=== PATIENT | male | born 1965 | race American Indian/Alaskan Native ===

== ENCOUNTER 2016-10-25 00:27 | Inpatient (IN) | payer OTHER ==
[2016-10-25] MEDS ORDERED: PROVENTIL IH ONE ×2 (00:30→00:39)
[2016-10-25] MEDS ORDERED: ATROVENT IH ONE ×2 (00:30→00:39)
[2016-10-25] MEDS ORDERED: ADRENALIN ONE (00:31)
[2016-10-25] MEDS ORDERED: ADRENALINE P/F IM ONE ×2 (00:45→01:00)
--- NOTE | 2016-10-25 00:45 | Emergency Department Report ---
ED Asthma HPI - General Chief Complaint: Dyspnea/Respdistress Stated Complaint: ASTHMA Time Seen by Provider: 10/25/16 00:33 - History of Present Illness Initial Comments: She is a 51-year-old male with history of severe asthma with multiple prior intubations brought in by EMS due to respiratory distress. Patient was found to be wheezing and hypoxic to the low 80s and received multiple rounds of albuterol, Solu-Medrol, magnesium with significant improvement. Patient upon arrival is still struggling to breathe but is moving good air. History is limited as the patient is not able to speak due to his respiratory distress. - Related Data Previous Rx's Medication Instructions Recorded Last Taken Type ALBUTEROL Inhaler [ProAir HFA 2 puff IH QID PRN #1 inhalation 10/04/16 Unknown Rx Inhaler] Fluticasone/Salmeterol [Advair 1 puff IH BID #1 disk.w.dev 10/04/16 Unknown Rx Diskus 250-50 mcg] Allergies Allergy/AdvReac Type Severity Reaction Status Date / Time No Known Allergies Allergy Verified 09/10/16 20:04 ED Review of Systems ROS: Stated complaint: ASTHMA Other details as noted in HPI Comment: Unobtainable due to pts medical conditions ED Past Medical Hx - Past Medical History Hx Congestive Heart Failure: No Hx Asthma: Yes - Surgical History Additional Surgical History: RIGHT ankle - Social History Smoking Status: Never Smoker Substance Use Type: None - Medications Home Medications: Home Medications Medication Instructions Recorded Confirmed Last Taken Type ALBUTEROL Inhaler [ProAir HFA 2 puff IH QID PRN #1 inhalation 10/04/16 Unknown Rx Inhaler] Fluticasone/Salmeterol [Advair 1 puff IH BID #1 disk.w.dev 10/04/16 Unknown Rx Diskus 250-50 mcg] ED Physical Exam - General Limitations: Other (respiratory distress) General appearance: alert (diaphoretic, severe respiratory distress) - Eye Eye exam: Present: normal appearance - ENT ENT exam: Present: normal exam - Neck Neck exam: Present: normal inspection - Respiratory Respiratory exam: Present: other (wheezing in bilateral lung randall, severe respiratory distress, using all accessory muscles) - Cardiovascular Cardiovascular Exam: Present: normal rhythm, tachycardia - GI/Abdominal GI/Abdominal exam: Present: soft. Absent: distended, tenderness - Extremities Exam Extremities exam: Present: normal inspection - Neurological Exam Neurological exam: Present: alert - Psychiatric Psychiatric exam: Present: agitated - Skin Skin exam: Present: diaphoretic ED Course Vital Signs 10/25/16 10/25/16 10/25/16 00:44 00:45 00:51 Pulse Rate 100 H 110 H Pulse Rate [ 102 H Bilateral] Respiratory 22 16 Rate Respiratory 21 Rate [Bilateral ] Blood Pressure 170/108 Blood Pressure 170/108 [Left] O2 Sat by Pulse 100 100 Oximetry 10/25/16 10/25/16 01:36 02:02 Pulse Rate 100 H 89 Pulse Rate [ Bilateral] Respiratory 26 H 16 Rate Respiratory Rate [Bilateral ] Blood Pressure 161/102 Blood Pressure 152/99 [Left] O2 Sat by Pulse 100 97 Oximetry - Reevaluation(s) Reevaluation #1: 10/25/16 01:01 Patient reassessed at bedside. Still in moderate respiratory distress however appears to be improving, is able to speak a few words sentence through the BiPAP. Is no longer diaphoretic. Saturating 100% on the monitor. Reevaluation #2: 10/25/16 01:34 Patient reassessed. Both speak in full sentences through BiPAP mask. ABG reviewed at this time and shows hypercapnia with a CO2 of 60. Will increase the inspiratory pressure on the BiPAP. ED Medical Decision Making - Lab Data Result diagrams: 10/25/16 01:16 10/25/16 01:16 - Medical Decision Making Patient seen immediately upon arrival. Moved over to room and placed on a monitor. Patient placed on BiPAP and .3 mg of 1 1000 epinephrine IM given. Monitor closely to see if the patient turns around or will require intubation. IV, labs, monitor, cxr Chest x-ray shows no signs of pneumothorax, infiltrate or any clear acute abnormalities. Critical Care Time: Yes Critical care time in (mins) excluding proc time.: 30 Critical care attestation.: If time is entered above; I have spent that time in minutes in the direct care of this critically ill patient, excluding procedure time. ED Disposition Clinical Impression: Acute hypercapnic respiratory failure, Respiratory distress, Asthma with severe exacerbation Disposition: OP ADMITTED IP TO THIS HOSP Is pt being admited?: Yes Does the pt Need Aspirin: No Condition: Serious Referrals: PRIMARY CARE,MD [Primary Care Provider] - 3-5 Days Time of Disposition: 02:07 (Spoke to Dr. Grande, will admit)
[2016-10-25 01:25] LABS: Basophils % (Auto) 0.3 % (0.0-1.8); Eosinophils % (Auto) 6.7 % (0.0-4.3); Hematocrit 43.4 % (35.5-45.6); Hemoglobin 14.3 gm/dl (11.8-15.2); Mean Corpuscular HGB Conc 33 % (32-34); Mean Corpuscular Hemoglobin 30 pg (28-32); Mean Corpuscular Volume 92 fl (84-94); Platelet Count 206 K/mm3 (140-440); Red Blood Count 4.72 M/mm3 (3.65-5.03); Red Cell Distribution Width 13.2 % (13.2-15.2); White Blood Count 11.8 K/mm3 (4.5-11.0)
[2016-10-25] MEDS ORDERED: ZOFRAN IV ONE (01:30)
[2016-10-25] MEDS ORDERED: ZOFRAN ONE (01:38)
[2016-10-25 01:44] LABS: ISTAT Base Excess 1; ISTAT HCO3 27.8; ISTAT PCO2 60.8 (35-45); ISTAT PH 7.269 (7.35-7.45); ISTAT PO2 322 (80-105); ISTAT SO2 100; ISTAT TCO2 30
[2016-10-25 01:49] LABS: BUN/Creatinine Ratio 13.33; Blood Urea Nitrogen 12 mg/dL (9-20); Carbon Dioxide 28 mmol/L (22-30); Chloride 104.1 mmol/L (98-107); Glucose 134 mg/dL (75-100); Potassium 4.4 mmol/L (3.6-5.0); Sodium 144 mmol/L (137-145)
[2016-10-25 02:08] LABS: Anion Gap 16 mmol/L
--- NOTE | 2016-10-25 02:33 | Admit Criteria Form ---
Admission Criteria Documentation: ASTHMA Clinical Indications for Admission to Inpatient Care (Place 'X' for any and all applicable criteria): Admission is indicated for ANY ONE of the following (1)(2)(3)(4)(5): [ ]I. Absent or markedly diminished breath sounds (silent chest) [ ]II. Oxygen saturation < 92% [ ]III. PaCO2 = / > 42 mm Hg (5.6 kPa) [ ]IV. Peak expiratory flow rate < 40% of predicted or personal best after treatment. [ ]V. Peak expiratory flow rate < 33% of predicted or personal before after treatment [ ]. Change in mental status [ ]VII. Ventilatory support required [ ]VIII. PaO2 < 60 mm Hg (8.0 kPa) [ ]IX. Cyanosis [ ]X. Cardiac dysrhythmia (e.g., bradycardia) [ ]XI. Hemodynamic instability [ ]XII. Radiographic evidence of complication requiring inpatient treatment (e.g., pneumonia, pneumothorax) [X ]XIII. Inpatient admission required rather than observation care (also use Asthma: Observation Care guideline as appropriate) because of ANY ONE of the following: [X ]a) Respiratory finding that is severe or persistent (eg, dyspnea, tachypnea, accessory muscle use) [ ]b) Airflow measurements less than 60% of predicted or personal best that persist (e.g., over 24 hours) or worsen despite treatments [ ]c) Supplemental oxygen or respiratory treatments for over 24 hours that are performable only in acute inpatient setting [ ]d) Other condition, treatment or monitoring requiring inpatient admission. Extended stay beyond goal length of stay may be needed for (26)(27)(28): [ ]a) Severe respiratory failure (23) (29) (30) [ ]b) Secondary causes and complications (25) [ ]c) Status asthmaticus [ ]d) Chronic obstructive asthma [ ]e) Older patients (29) [ ]f) Slow resolution [ ]g) Clinically significant exacerbation of comorbidities (eg, elliot. heart failure, atrial fibrillation) The original [employer] content created by [email or web address] has been revised. The portions of the content which have been revised are identified through the use of italic text or in bold, and [employer] has neither reviewed nor approved the modified material. All other unmodified content is copyright [employer] Please see references footnoted in the original [facility] edition 2016 Admission Criteria Met: Yes
[2016-10-25 03:09] LABS: ISTAT Base Excess -1; ISTAT HCO3 25.8; ISTAT PCO2 52.4 (35-45); ISTAT PO2 111 (80-105); ISTAT SO2 98; ISTAT TCO2 27
[2016-10-25] MEDS ORDERED: ZITHROMAX 500 MG in NACL 0.9% 250ML 250 ML IV SCH (07:00)
[2016-10-25] MEDS ORDERED: PROAIR IH PRN (09:06)
[2016-10-25] MEDS ORDERED: PROVENTIL IH PRN (09:13)
--- NOTE | 2016-10-25 09:16 | Event Note ---
Date: 10/25/16 See H/p in reports Acute respiratory failure with Hypercapnia Asthma exacerbation
[2016-10-25] MEDS ORDERED: PERCOCET 5/325 PO PRN (09:17)
[2016-10-25] MEDS ORDERED: DULCOLAX PR PRN (09:17)
[2016-10-25] MEDS ORDERED: TYLENOL PO PRN (09:17)
[2016-10-25] MEDS ORDERED: DUONEB 0.5 MG-3 MG/3 ML SOLN IH PRN (09:23)
--- NOTE | 2016-10-25 09:44 | XRay Report ---
AP CHEST :10/25/16 01:07 CLINICAL: Respiratory distress. COMPARISON:None. FINDINGS: Normal heart and pulmonary vasculature. The lungs are normally expanded and clear. The bones and soft tissues are normal.No tubes or lines. IMPRESSION: Normal chest.
[2016-10-25] MEDS ORDERED: MILK OF MAGNESIA PO PRN (10:00)
[2016-10-25] MEDS ORDERED: LEVAQUIN 750MG/150ML 150 ML IV SCH (10:00)
[2016-10-25] MEDS ORDERED: NON-FORMULARY (Fluticasone/Salmeterol [Advair Diskus 250-50 Mcg] 1 PUFF) IH SCH (10:00)
[2016-10-25] MEDS ORDERED: ZOFRAN IV PRN (10:00)
[2016-10-25] MEDS: DUONEB 0.5 MG-3 MG/3 ML SOLN IH SCH ×3 (10:00→20:00)
[2016-10-25] MEDS ORDERED: LEVAQUIN 750MG/150ML 150 ML IV ONE (12:11)
[2016-10-25] MEDS: COZAAR PO SCH (12:35)
[2016-10-25] MEDS: LOVENOX SUB-Q SCH (12:36)
[2016-10-25] MEDS: BROVANA NEBU IH SCH ×2 (13:51→20:01)
[2016-10-25] MEDS: PULMICORT IH SCH ×2 (13:51→20:00)
[2016-10-25] MEDS ORDERED: DUONEB 0.5 MG-3 MG/3 ML SOLN IH ONE (14:39)
--- NOTE | 2016-10-25 18:17 | History and Physical Report ---
CHIEF COMPLAINT: Increasing shortness of breath. HISTORY OF PRESENT ILLNESS: A 51-year-old -[place] male with history of asthma and multiple prior intubations brought in by EMS for severe respiratory distress. The patient was found to be wheezing and hypoxic in the low 80s. The patient was given Solu-Medrol, magnesium with significant improvement in the ER. The patient was put on BiPAP. The patient was struggling to breathe at the time of arrival. No fever, no chills. Cough productive of mucoid sputum. PAST MEDICAL HISTORY: Significant for asthma with multiple intubations. No hypertension, no congestive heart failure. PAST SURGICAL HISTORY: Right ankle surgery. SOCIAL HISTORY: Does not smoke. No alcohol, no recreational drugs. CURRENT MEDICATIONS: ProAir 2 puffs q.i.d. and Advair 250/50 one puff b.i.d. FAMILY HISTORY: Significant for hypertension. REVIEW OF SYSTEMS: CONSTITUTIONAL: No weight loss, no weight gain, no fever, no chills. HEENT: No sore throat. CARDIOVASCULAR AND RESPIRATORY SYSTEM: As mentioned in history of present illness, increased shortness of breath and low oxygen saturations and respiratory distress for 1 day. No chest pain. No palpitations. GASTROINTESTINAL: No nausea, no vomiting, no diarrhea. GENITOURINARY SYSTEM: No dysuria, no flank pain. MUSCULOSKELETAL: No joint pains, no muscle pains. CENTRAL NERVOUS SYSTEM: No syncope, no seizures. PSYCHIATRIC: No depression. SKIN: No rashes. ENDOCRINE: No heat intolerance or cold intolerance. No other endocrine symptoms like polyphagia, polydipsia. INTEGUMENTARY SYSTEM: No rash. No ulcers. No redness. ALLERGIES AND IMMUNOLOGY: No allergic rhinitis. Has severe wheezing. PHYSICAL EXAMINATION: GENERAL: Young middle-aged male, cooperative during examination. VITAL SIGNS: Blood pressure is 170/108, temperature is 98, pulse is 100, respiratory rate is 21 to 22. HEENT: Unremarkable. Pupils equal and reactive. NECK: Supple. No lymphadenopathy, no thyromegaly. Accessory muscles of respiration are prominent. LUNGS: Inspiratory and expiratory rhonchi present. CARDIOVASCULAR: S1, S2 heard. No gallop, no murmur, no rub. Apical impulse in left fifth intercostal space and midclavicular line. ABDOMEN: Soft and benign. No hepatosplenomegaly, no guarding, no rigidity. Hernial orifices are normal. EXTREMITIES: Good pedal pulses. No pedal edema. CENTRAL NERVOUS SYSTEM: Alert and oriented x 4. Nonfocal exam. SKIN: Normal. LABORATORY DATA: White count is 11,800;, hemoglobin is 14.3; hematocrit is 43.4; platelet count is 206,000. ABG is significant for pH of 7.3, pCO2 of 52.4, pO2 of 111, total CO2 of 27, O2 sats of 98%. FiO2 was 25%. Sodium was 144, potassium 4.4, chloride 104, bicarb 28, BUN and creatinine are 12 and 0.9, glucose is 134, calcium is 9.0. Troponin T is less than 0.010. BNP is 12.08. Chest x-ray, no infiltrate. ASSESSMENT AND PLAN: 1. Acute respiratory failure with hypercapnia, aggressive bronchodilator treatments with IV steroids, Solu-Medrol 80 mg q.8 and IV Levaquin 750 q.24. The patient has improved significantly, so can be admitted to Telemetry. Downgraded from critical care unit to Telemetry. 2. Asthma exacerbation. Same treatment, DuoNeb q.6 round the clock and q.3 p.r.n. and IV Solu-Medrol and IV Levaquin. 3. Hypertension. The patient's blood pressures have been consistently high, but the patient does not have a history of hypertension. The last blood pressure was 133/103. We will add losartan 100 mg daily for the time being and discharged on losartan 100 daily. 4. Deep venous thrombosis prophylaxis, Lovenox 40 mg subcutaneous daily. JOB# [id number] VSM/NTS
[2016-10-26] MEDS: DUONEB 0.5 MG-3 MG/3 ML SOLN IH SCH ×4 (01:39→21:01)
[2016-10-26] MEDS: BROVANA NEBU IH SCH ×2 (07:50→21:01)
[2016-10-26] MEDS: PULMICORT IH SCH ×2 (07:50→21:00)
[2016-10-26 08:24] LABS: Basophils % (Auto) 0.4 % (0.0-1.8); Hematocrit 46.8 % (35.5-45.6); Mean Corpuscular HGB Conc 32 % (32-34); Mean Corpuscular Hemoglobin 30 pg (28-32); Mean Corpuscular Volume 93 fl (84-94); Platelet Count 241 K/mm3 (140-440); Red Blood Count 5.06 M/mm3 (3.65-5.03); Red Cell Distribution Width 13.4 % (13.2-15.2)
[2016-10-26 08:42] LABS: Alanine Aminotransferase 17 units/L (7-56); Albumin 4.1 g/dL (3.9-5); Albumin/Globulin Ratio 1.2 %; Alkaline Phosphatase 47 units/L (35-129); Anion Gap 20 mmol/L; Bilirubin,Total 0.3 mg/dL (0.1-1.2); Blood Urea Nitrogen 17 mg/dL (9-20); Calcium 9.5 mg/dL (8.4-10.2); Carbon Dioxide 24 mmol/L (22-30); Chloride 102.7 mmol/L (98-107); Glucose 133 mg/dL (75-100); Potassium 4.6 mmol/L (3.6-5.0); Sodium 142 mmol/L (137-145); Total Protein 7.5 g/dL (6.3-8.2)
--- NOTE | 2016-10-26 09:58 | Progress Note ---
Assessment and Plan Assessment and plan: Acute respiratory failure with hypoxemia and hypercapnia Acute asthma exacerbation Hypertension, uncontrolled Leukocytosis, likely due to acute bronchitis Plan: Continue scheduled breathing treatment, IV Solu-Medrol and antibiotics Monitor BP and adjust medications to control blood pressure as needed Continue GI and DVT prophylaxis DC home when clinically stable History Interval history: Patient seen and examined. Medical records and medication list reviewed. No acute event overnight noted by the RN. Patient continued to complain of difficulty breathing on minimal exertion. Patient is tolerating diet. Discussed plan of care at bedside with patient. Hospitalist Physical - Physical exam Narrative exam: GENERAL: well-developed and well-nourished lying on bed appeared to be in no discomfort. HEENT: Normocephalic. Atraumatic. No conjunctival congestion or icterus. Patient has moist mucous membranes. NECK: Supple. Trachea midline. CHEST/LUNGS: Diffuse wheezes auscultated bilaterally, breathing nonlabored. No crackles or rhonchi. HEART/CARDIOVASCULAR: Regular in rate and rhythm. S1 and S2 positive. ABDOMEN: Abdomen is soft, nontender. Patient has normal bowel sounds. SKIN: There is no rash. Warm and dry. NEURO: No focal motor deficit. Follows command. MUSCULOSKELETAL: No joint effusion or tenderness. EXTRIMITY: No edema, no cyanosis or clubbing. PSYCH: Cooperative. - Constitutional Vitals: Temp Pulse Resp BP Pulse Ox 98.9 F 85 15 146/84 99 10/26/16 07:40 10/26/16 07:40 10/26/16 07:40 10/26/16 07:40 10/26/16 07:40 Results - Labs CBC & Chem 7: 10/26/16 07:55 10/26/16 07:55 Labs: Laboratory Last Values WBC 11.0 K/mm3 (4.5-11.0) 10/26/16 07:55 RBC 5.06 M/mm3 (3.65-5.03) H 10/26/16 07:55 Hgb 15.0 gm/dl (11.8-15.2) 10/26/16 07:55 Hct 46.8 % (35.5-45.6) H 10/26/16 07:55 MCV 93 fl (84-94) 10/26/16 07:55 MCH 30 pg (28-32) 10/26/16 07:55 MCHC 32 % (32-34) 10/26/16 07:55 RDW 13.4 % (13.2-15.2) 10/26/16 07:55 Plt Count 241 K/mm3 (140-440) 10/26/16 07:55 Lymph % (Auto) 10.2 % (13.4-35.0) L 10/26/16 07:55 Ferry % (Auto) 3.3 % (0.0-7.3) 10/26/16 07:55 Eos % (Auto) 0.0 % (0.0-4.3) 10/26/16 07:55 Baso % (Auto) 0.4 % (0.0-1.8) 10/26/16 07:55 Lymph # 1.1 K/mm3 (1.2-5.4) L 10/26/16 07:55 Ferry # 0.4 K/mm3 (0.0-0.8) 10/26/16 07:55 Eos # 0.0 K/mm3 (0.0-0.4) 10/26/16 07:55 Baso # 0.0 K/mm3 (0.0-0.1) 10/26/16 07:55 Seg Neutrophils % 86.1 % (40.0-70.0) H 10/26/16 07:55 Seg Neutrophils # 9.5 K/mm3 (1.8-7.7) H 10/26/16 07:55 POC ABG pH 7.300 (7.35-7.45) L 10/25/16 03:00 POC ABG pCO2 52.4 (35-45) H 10/25/16 03:00 POC ABG pO2 111 (80-105) H 10/25/16 03:00 POC ABG HCO3 25.8 10/25/16 03:00 POC ABG Total CO2 27 10/25/16 03:00 POC ABG O2 Sat 98 10/25/16 03:00 POC ABG Base Excess -1 10/25/16 03:00 FiO2 25 % 10/25/16 03:00 Sodium 142 mmol/L (137-145) 10/26/16 07:55 Potassium 4.6 mmol/L (3.6-5.0) 10/26/16 07:55 Chloride 102.7 mmol/L (98-107) 10/26/16 07:55 Carbon Dioxide 24 mmol/L (22-30) 10/26/16 07:55 Anion Gap 20 mmol/L 10/26/16 07:55 BUN 17 mg/dL (9-20) 10/26/16 07:55 Creatinine 1.0 mg/dL (0.8-1.5) 10/26/16 07:55 Estimated GFR > 60 ml/min 10/26/16 07:55 BUN/Creatinine Ratio 17.00 % 10/26/16 07:55 Glucose 133 mg/dL (75-100) H 10/26/16 07:55 Hemoglobin A1c 5.9 % (4-6) 10/25/16 09:58 Calcium 9.5 mg/dL (8.4-10.2) 10/26/16 07:55 Total Bilirubin 0.3 mg/dL (0.1-1.2) 10/26/16 07:55 AST 19 units/L (5-40) 10/26/16 07:55 ALT 17 units/L (7-56) 10/26/16 07:55 Alkaline Phosphatase 47 units/L (35-129) 10/26/16 07:55 Troponin T < 0.010 ng/mL (0.00-0.029) 10/25/16 01:16 NT-Pro-B Natriuret Pep 12.08 pg/mL (0-900) 10/25/16 01:16 Total Protein 7.5 g/dL (6.3-8.2) 10/26/16 07:55 Albumin 4.1 g/dL (3.9-5) 10/26/16 07:55 Albumin/Globulin Ratio 1.2 % 10/26/16 07:55 - Imaging and Cardiology Chest x-ray: report reviewed (no infiltrates)
[2016-10-26] MEDS: COZAAR PO SCH (10:47)
[2016-10-26] MEDS: LOVENOX SUB-Q SCH (10:48)
[2016-10-26] MEDS ORDERED: FLUARIX QUAD 2016-2017(36 MOS+) IM ONE (12:00)
[2016-10-26] MEDS: LEVAQUIN 750MG/150ML 150 ML IV SCH (13:57)
[2016-10-27] MEDS: DUONEB 0.5 MG-3 MG/3 ML SOLN IH SCH ×3 (01:39→13:33)
[2016-10-27] MEDS: BROVANA NEBU IH SCH (09:20)
[2016-10-27] MEDS: PULMICORT IH SCH (09:20)
[2016-10-27] MEDS: COZAAR PO SCH (10:00)
[2016-10-27] MEDS: LEVAQUIN 750MG/150ML 150 ML IV SCH (10:00)
[2016-10-27] MEDS: LOVENOX SUB-Q SCH (10:00)
--- NOTE | 2016-10-27 12:51 | Discharge Summary ---
Providers - Providers Date of Admission: 10/25/16 12:12 Date of discharge: 10/27/16 Attending physician: ROSIBEL KEITA Primary care physician: SOFY ARRIAGA MD Hospitalization Condition: Serious Hospital course: Discharge Diagnosis: Acute respiratory failure with hypoxemia and hypercapnia Acute asthma exacerbation Hypertension, uncontrolled Leukocytosis, likely due to acute bronchitis Disposition: DISCHARGED TO HOME OR SELFCARE Time spent for discharge: 32 minutes Core Measure Documentation - Palliative Care Palliative Care/ Comfort Measures: Not Applicable - Core Measures Any of the following diagnoses?: none Exam - Physical Exam Narrative exam: GENERAL: well-developed and well-nourished AAM lying on bed appeared to be in no discomfort. HEENT: Normocephalic. Atraumatic. No conjunctival congestion or icterus. Patient has moist mucous membranes. NECK: Supple. Trachea midline. CHEST/LUNGS: no wheezes auscultated bilaterally, breathing nonlabored. No crackles or rhonchi. HEART/CARDIOVASCULAR: Regular in rate and rhythm. S1 and S2 positive. ABDOMEN: Abdomen is soft, nontender. Patient has normal bowel sounds. SKIN: There is no rash. Warm and dry. NEURO: No focal motor deficit. Follows command. MUSCULOSKELETAL: No joint effusion or tenderness. EXTRIMITY: No edema, no cyanosis or clubbing. PSYCH: Cooperative. - Constitutional Vitals: Temp Pulse Resp BP Pulse Ox 98.5 F 86 20 150/86 98 10/27/16 08:00 10/27/16 09:45 10/27/16 09:45 10/27/16 08:00 10/27/16 08:00 Plan Activity: advance as tolerated Weight Bearing Status: Weight Bear as Tolerated Diet: low cholesterol, low salt Follow up with: PRIMARY CAREMD [Primary Care Provider] - 3-5 Days Prescriptions: Losartan [Cozaar] 100 mg PO QDAY #30 tablet Levofloxacin [Levaquin] 750 mg PO QDAY #5 tablet
[2016-10-27 14:50] VITALS: BP 136/82
== END 2016-10-27 17:59 | disposition home or self-care (01) | DRG 189 ==
LOC: ED 00:27 → 4A 12:12 → 3A 14:12
PROVIDERS: ADMIT Internal Medicine; ATTEND Internal Medicine
PROC: 5A09357 Assistance with Respiratory Ventilation, Less than 24 Consecutive Hours, Continuous Positive Airway Pressure (ICD-10-PCS; principal; 2016-10-25)
DX: J96.01 Acute respiratory failure with hypoxia (principal); J45.901 Unspecified asthma with (acute) exacerbation; J96.02 Acute respiratory failure with hypercapnia; I10 Essential (primary) hypertension; D72.829 Elevated white blood cell count, unspecified; J20.9 Acute bronchitis, unspecified; Z82.49 Family history of ischemic heart disease and other diseases of the circulatory system
CPT/HCPCS: 36415; 71010; 80048; 80053; 82803; 83036; 83880; 84484; 85025; 90686; 94640; J0171; J0456; J1650; J1956; J2405; J2920; J7050

== ENCOUNTER 2016-11-14 20:47 | Inpatient (IN) | payer OTHER ==
[2016-11-14] MEDS ORDERED: PROVENTIL IH ONE (21:05)
[2016-11-14] MEDS ORDERED: DUONEB 0.5 MG-3 MG/3 ML SOLN IH ONE (21:05)
[2016-11-14 21:35] LABS: Basophils % (Auto) 0.4 % (0.0-1.8); Hematocrit 44.8 % (35.5-45.6); Hemoglobin 14.6 gm/dl (11.8-15.2); Mean Corpuscular HGB Conc 33 % (32-34); Mean Corpuscular Hemoglobin 29 pg (28-32); Mean Corpuscular Volume 90 fl (84-94); Platelet Count 219 K/mm3 (140-440); Red Blood Count 4.98 M/mm3 (3.65-5.03); Red Cell Distribution Width 12.9 % (13.2-15.2); White Blood Count 6.8 K/mm3 (4.5-11.0)
[2016-11-14 21:56] LABS: Anion Gap 19 mmol/L; BUN/Creatinine Ratio 12.85; Blood Urea Nitrogen 9 mg/dL (9-20); Calcium 9.1 mg/dL (8.4-10.2); Carbon Dioxide 24 mmol/L (22-30); Chloride 102.1 mmol/L (98-107); Glucose 149 mg/dL (75-100); Sodium 141 mmol/L (137-145)
--- NOTE | 2016-11-14 22:24 | Emergency Department Report ---
ED Shortness of Breath HPI - General Chief Complaint: Dyspnea/Respdistress Stated Complaint: FITO Time Seen by Provider: 11/14/16 21:01 Source: patient, EMS Mode of arrival: Stretcher Limitations: No Limitations - History of Present Illness Initial Comments: This is a pleasant 51-year-old male who reports difficulty in breathing that has been worsening throughout the day. She does have a long-standing history of COPD. He does use nebulized treatments regularly. He reports using frequent treatment since this afternoon. He states he continues to become more dyspneic. EMS was called to the house. Patient was found to have O2 saturation of 90% on room air. Patient was given magnesium 2 g as well as DuoNeb treatment as well Solu-Medrol 125 mg IV. Patient describes tightness in the chest. Denies any pain denies any cardiac history. Onset/Timin -: Gradual, hour(s) Severity: moderate Quality: dull Consistency: constant Improves With: oxygen, rest Worsens With: exertion Known History Of: COPD Associated Symptoms: denies other symptoms Treatments Prior to Arrival: oxygen, bronchodilator - Related Data Previous Rx's Medication Instructions Recorded Last Taken Type ALBUTEROL Inhaler [ProAir HFA 2 puff IH QID PRN #1 inhalation 10/04/16 Unknown Rx Inhaler] Fluticasone/Salmeterol [Advair 1 puff IH BID #1 disk.w.dev 10/04/16 Unknown Rx Diskus 250-50 mcg] Losartan [Cozaar] 100 mg PO QDAY #30 tablet 10/27/16 Unknown Rx Allergies Allergy/AdvReac Type Severity Reaction Status Date / Time No Known Allergies Allergy Verified 09/10/16 20:04 ED Review of Systems ROS: Stated complaint: FITO Other details as noted in HPI Constitutional: denies: chills, fever Eyes: denies: eye pain, eye discharge, vision change ENT: denies: ear pain, throat pain Respiratory: cough, shortness of breath, SOB with exertion, SOB at rest. denies : wheezing Cardiovascular: denies: chest pain, palpitations Endocrine: no symptoms reported Gastrointestinal: denies: abdominal pain, nausea, diarrhea Genitourinary: denies: urgency, dysuria Musculoskeletal: denies: back pain, joint swelling, arthralgia Skin: denies: rash, lesions Neurological: denies: headache, weakness, paresthesias Psychiatric: denies: anxiety, depression Hematological/Lymphatic: denies: easy bleeding, easy bruising ED Past Medical Hx - Past Medical History Previous Medical History?: Yes Hx Congestive Heart Failure: No Hx Diabetes: No Hx Asthma: Yes Hx COPD: No - Surgical History Past Surgical History?: Yes Additional Surgical History: RIGHT ankle - Social History Smoking Status: Never Smoker Substance Use Type: None - Medications Home Medications: Home Medications Medication Instructions Recorded Confirmed Last Taken Type ALBUTEROL Inhaler [ProAir HFA 2 puff IH QID PRN #1 inhalation 10/04/16 11/14/16 Unknown Rx Inhaler] Fluticasone/Salmeterol [Advair 1 puff IH BID #1 disk.w.dev 10/04/16 11/14/16 Unknown Rx Diskus 250-50 mcg] Losartan [Cozaar] 100 mg PO QDAY #30 tablet 10/27/16 11/14/16 Unknown Rx ED Physical Exam - General Limitations: No Limitations General appearance: alert, anxious, in distress - Head Head exam: Present: atraumatic, normocephalic - Eye Eye exam: Present: normal appearance, PERRL, EOMI - ENT ENT exam: Present: normal exam, normal orophraynx, mucous membranes moist - Neck Neck exam: Present: normal inspection - Respiratory Respiratory exam: Present: respiratory distress (moderate), wheezes, decreased breath sounds - Cardiovascular Cardiovascular Exam: Present: tachycardia. Absent: systolic murmur, diastolic murmur, rubs, gallop - GI/Abdominal GI/Abdominal exam: Present: soft, tenderness (mild epigastric tenderness from coughing), normal bowel sounds - Rectal Rectal exam: Present: deferred - Extremities Exam Extremities exam: Present: normal inspection - Back Exam Back exam: Present: normal inspection - Neurological Exam Neurological exam: Present: alert, oriented X3 - Psychiatric Psychiatric exam: Present: normal affect, normal mood - Skin Skin exam: Present: warm, dry, intact, normal color. Absent: rash ED Course Vital Signs 11/14/16 11/14/16 11/14/16 21:16 21:18 21:22 Pulse Rate 117 H 117 H Pulse Rate [ 118 H Bilateral] Respiratory 20 16 Rate Respiratory 21 Rate [Bilateral ] Blood Pressure 165/114 Blood Pressure 165/114 [Left] O2 Sat by Pulse 100 100 Oximetry 11/14/16 11/15/16 22:35 00:00 Pulse Rate 74 Pulse Rate [ Bilateral] Respiratory 16 Rate Respiratory Rate [Bilateral ] Blood Pressure Blood Pressure 126/97 [Left] O2 Sat by Pulse 95 99 Oximetry - Reevaluation(s) Reevaluation #1: 11/14/16 22:50 Patient placed on BiPAP here. He was given another DuoNeb as well as 5 mg of albuterol. Asthma and after 1 hour demonstrate still working fairly hard. O2 saturation with BiPAP 100% on 60% BiPAP I believe over the next hour though will building him down to nasal cannula. I feel that he is appropriate for the floor with telemetry. My hope was that he would have a more quick recovery but he is demonstrating some improvement. I did consider cardiac primary issues as well as possibility of PE. I have a low suspicion of both. COPD is a common ailment for him. This seems to be an exacerbation. Here is unremarkable. As is troponin. Reevaluation #2: 11/15/16 02:30 We were unsuccessful in getting the patient off BiPAP. We will still admit to telemetry stable at this time. With FiO2 of 40% ED Medical Decision Making - Lab Data Result diagrams: 11/14/16 21:20 11/14/16 21:20 - EKG Data EKG shows normal: sinus rhythm, axis (nml), QRS complexes (nml), ST-T waves ( nmllvh) Rate: tachycardia (120) - EKG Data When compared to previous EKG there are: previous EKG unavailable - Radiology Data interpreted by me: Slight hyperexpansion. No infiltrate. Normal cardiac silhouette. Critical care attestation.: If time is entered above; I have spent that time in minutes in the direct care of this critically ill patient, excluding procedure time. ED Disposition Clinical Impression: COPD with exacerbation Disposition: OP ADMITTED IP TO THIS HOSP Is pt being admited?: Yes Does the pt Need Aspirin: No Condition: Stable Time of Disposition: 22:24
[2016-11-14] MEDS ORDERED: NON-FORMULARY (Fluticasone/Salmeterol [Advair Diskus 250-50 Mcg] 1 PUFF) IH SCH (23:45)
[2016-11-14] MEDS ORDERED: PROAIR IH PRN (23:50)
--- NOTE | 2016-11-14 23:50 | Event Note ---
Date: 11/14/16 Acute resp failure Copd exacerbation HTN
[2016-11-14] MEDS ORDERED: DUONEB 0.5 MG-3 MG/3 ML SOLN IH PRN (23:51)
[2016-11-15] MEDS ORDERED: PROVENTIL IH PRN (00:03)
--- NOTE | 2016-11-15 00:29 | History and Physical Report ---
CHIEF COMPLAINT: Increasing shortness of breath for one day. HISTORY OF PRESENT ILLNESS: A 51-year-old -[place] male who presents with increasing shortness of breath for about 24 hours. The patient has history of COPD and has used nebulizer treatments regularly. In spite of that the patient has been wheezing a lot today and not responding to the nebulizer treatment at home. The patient has been becoming more dyspneic. His saturations were 88% and 90% on room air when he arrived. The patient was given 2 grams of magnesium as well as DuoNeb treatments, as well as Solu-Medrol 120 IV. The patient continued to having tightness in the chest and short of breath and wheezing. CURRENT MEDICATIONS: Losartan 100 mg daily, Advair 250/50 one puff b.i.d., albuterol inhaler 2 puffs q.i.d., Levaquin 750 p.o. daily. PAST MEDICAL HISTORY: Significant for hypertension and COPD/asthma. PAST SURGICAL HISTORY: Right ankle surgery. SOCIAL HISTORY: Does not smoke. No alcohol, no recreational drugs. FAMILY HISTORY: Significant for hypertension. REVIEW OF SYSTEMS: Significant for increasing shortness of breath, wheezing, and cough productive of mucoid sputum. CONSTITUTIONAL: No weight loss, no weight gain. HEENT: No sore throat, no postanal drip. NECK: No neck stiffness or neck pain. CHEST AND LUNGS: Very short of breath and cough productive of mucoid sputum. CARDIOVASCULAR: No chest pain, no palpitations, no diaphoresis. GASTROINTESTINAL: No nausea, no vomiting, no diarrhea. GENITOURINARY: No dysuria, no flank pain. MUSCULOSKELETAL: No joint pains, no muscle pains. SKIN: No rashes. PSYCHIATRIC: No depression, no psychosis. No homicidal or suicidal ideation. ENDOCRINE: No polyphagia, polyuria, polydipsia. A 14-point review of systems done, essentially negative. PHYSICAL EXAMINATION: GENERAL: Middle-aged male, cooperative during examination. VITAL SIGNS: Blood pressure , pulse is 118, respirations are 21, and O2 sats are 88-90%. HEENT: Unremarkable. Pupils equal and reactive. NECK: Supple, no lymphadenopathy, no thyromegaly. LUNGS: Bilateral inspiratory and expiratory rhonchi present. CARDIOVASCULAR: S1, S2 heard. No gallop, no murmur, no rub. Apical impulse in left fifth intercostal space in midclavicular line. ABDOMEN: Soft and benign. No hepatosplenomegaly. No guarding, no rigidity. Hernial orifices are normal. EXTREMITIES: Good pedal pulses. No pedal edema. CENTRAL NERVOUS SYSTEM: Alert and oriented x 4. Nonfocal exam. SKIN: Normal. LABORATORY DATA: EKG shows normal sinus rhythm, no QRS complexes, sinus tachycardia, heart rate of 120 per minute. Chest x-ray shows hyperexpansion and consistent with emphysema, normal cardiac silhouette, no infiltrate. ASSESSMENT AND PLAN: 1. Acute respiratory failure. Continue IV Solu-Medrol, IV Levaquin, DuoNeb around the clock and q. 3 p.r.n. 2. Chronic obstructive pulmonary disease exacerbation. Same as above. IV Levaquin, IV Solu-Medrol, and DuoNeb q. 6 around the clock and q. 3 p.r.n. 3. Hypertension. Continue on losartan 100 mg daily. Blood pressure was uncontrolled, we will add Coreg as necessary. 4. Deep venous thrombosis prophylaxis, Lovenox 40 mg subcutaneous daily. JOB# [id number] VSSyed/NTS
[2016-11-15] MEDS: D5/0.45NS 1,000 ML IV SCH ×2 (01:08→18:55)
[2016-11-15] MEDS: DUONEB 0.5 MG-3 MG/3 ML SOLN IH SCH ×4 (01:20→19:48)
[2016-11-15] MEDS: PULMICORT IH SCH ×2 (07:47→19:48)
[2016-11-15] MEDS: BROVANA NEBU IH SCH ×2 (07:47→19:48)
[2016-11-15] MEDS: COZAAR PO SCH (09:03)
[2016-11-15] MEDS: LEVAQUIN 750MG/150ML 750 MG/150 ML BAG IV SCH (09:03)
--- NOTE | 2016-11-15 09:36 | XRay Report ---
Single view chest: Compared to 10/25/16. History: Difficulty breathing. Findings: Normal cardiomediastinal silhouette. Trachea is midline. No consolidation, pneumothorax or pleural effusion. Impression: No acute cardiopulmonary findings.
--- NOTE | 2016-11-15 13:02 | Progress Note ---
Assessment and Plan Assessment and plan: Acute resp failure COPD exacerbation History Interval history: shortness of breath, no chest pain Hospitalist Physical - Constitutional Vitals: Temp Pulse Resp BP Pulse Ox 97.5 F L 82 18 116/80 97 11/15/16 07:35 11/15/16 09:03 11/15/16 08:06 11/15/16 09:03 11/15/16 07:55 Results - Labs CBC & Chem 7: 11/14/16 21:20 11/14/16 21:20 Labs: Laboratory Last Values WBC 6.8 K/mm3 (4.5-11.0) 11/14/16 21:20 RBC 4.98 M/mm3 (3.65-5.03) 11/14/16 21:20 Hgb 14.6 gm/dl (11.8-15.2) 11/14/16 21:20 Hct 44.8 % (35.5-45.6) 11/14/16 21:20 MCV 90 fl (84-94) 11/14/16 21:20 MCH 29 pg (28-32) 11/14/16 21:20 MCHC 33 % (32-34) 11/14/16 21:20 RDW 12.9 % (13.2-15.2) L 11/14/16 21:20 Plt Count 219 K/mm3 (140-440) 11/14/16 21:20 Lymph % (Auto) 21.5 % (13.4-35.0) 11/14/16 21:20 Wilson % (Auto) 8.6 % (0.0-7.3) H 11/14/16 21:20 Eos % (Auto) 7.0 % (0.0-4.3) H 11/14/16 21:20 Baso % (Auto) 0.4 % (0.0-1.8) 11/14/16 21:20 Lymph # 1.5 K/mm3 (1.2-5.4) 11/14/16 21:20 Wilson # 0.6 K/mm3 (0.0-0.8) 11/14/16 21:20 Eos # 0.5 K/mm3 (0.0-0.4) H 11/14/16 21:20 Baso # 0.0 K/mm3 (0.0-0.1) 11/14/16 21:20 Seg Neutrophils % 62.5 % (40.0-70.0) 11/14/16 21:20 Seg Neutrophils # 4.3 K/mm3 (1.8-7.7) 11/14/16 21:20 Sodium 141 mmol/L (137-145) 11/14/16 21:20 Potassium 4.0 mmol/L (3.6-5.0) 11/14/16 21:20 Chloride 102.1 mmol/L (98-107) 11/14/16 21:20 Carbon Dioxide 24 mmol/L (22-30) 11/14/16 21:20 Anion Gap 19 mmol/L 11/14/16 21:20 BUN 9 mg/dL (9-20) 11/14/16 21:20 Creatinine 0.7 mg/dL (0.8-1.5) L 11/14/16 21:20 Estimated GFR > 60 ml/min 11/14/16 21:20 BUN/Creatinine Ratio 12.85 % 11/14/16 21:20 Glucose 149 mg/dL (75-100) H 11/14/16 21:20 Calcium 9.1 mg/dL (8.4-10.2) 11/14/16 21:20 Troponin T < 0.010 ng/mL (0.00-0.029) 11/14/16 21:20
--- NOTE | 2016-11-16 00:38 | Admit Criteria Form ---
Admission Criteria Documentation: COPD Clinical Indications for Admission to Inpatient Care (Place 'X' for any and all applicable criteria): Admission is indicated for ANY ONE of the following (1)(2)(3): [ X]I. Acute exacerbation by high-risk comorbidity (e.g., pneumonia, dysrhythmia, heart failure, pleural effusion, pneumothorax) or severe underlying COPD (e.g., steroid dependent) [ X]II. Inpatient admission required rather than observation care (see Chronic Obstructive Pulmonary Disease: Observation Care) because of ANY ONE of the following: [ X]a) New or pre-existing signs or symptoms of COPD (eg, dyspnea or Tachypnea at rest or with minimal activity) that persist despite outpatient and observation care treatment [ ]b) New-onset hypoxemia (room air SaO2 less than 90%, PO2 less than 60 mm Hg (8.0 kPa)) that persists despite outpatient and observation care treatment [ ]c) Worsening of pre-existing hypoxemia (eg, new or increased requirement for supplemental oxygen to maintain oxygenation at baseline level) that persists despite outpatient and observation care treatment, with oxygen treatment needs performable only in acute inpatient setting [ ]d) Hypercarbia (PCO2 greater than 40 mm Hg (5.3 kPa))-induced respiratory acidosis (pH less than 7.35) that persists despite outpatient and observation care treatment [ ]e) Supplemental oxygen or respiratory treatments for over 24 hours that are performable only in acute inpatient setting [ ]f) Chest tube placement with active evacuation (e.g., suction, drainage) (5) [ ]g) Other condition, treatment or monitoring requiring inpatient admission [ ]III. Planned invasive surgical or diagnostic procedures requiring acute- care hospitalization [ ]IV. Acute respiratory failure (e.g., uncompensated hypercarbia, severe hypoxemia) [ ]V. Severe comorbid condition (e.g., severe steroid myopathy, acute vertebral fracture) that has acutely worsened pulmonary function [ ]. Confusion state, lethargy, obtundation, stupor or coma Extended stay beyond goal length of stay may be needed for (31)(32): [ ]a ) Respiratory Failure. [ ]b) Severe or persisting hypoxemia or hypercarbia [ ]c) Severe or persistent dyspnea [ ]d) Comorbidities (e.g. chronic heart failure, atrial fibrillation with rapid response, pneumonia) [ ]e) Malnutrition The original [facility] content created by [facility] has been revised. The portions of the content which have been revised are identified through the use of italic text or in bold, and [facility] has neither reviewed nor approved the modified material. All other unmodified content is copyright [facility]. Please see references footnoted in the original [facility] edition 2016 Admission Criteria Met: Yes
[2016-11-16] MEDS: DUONEB 0.5 MG-3 MG/3 ML SOLN IH SCH ×3 (01:57→13:24)
[2016-11-16] MEDS: BROVANA NEBU IH SCH (07:58)
[2016-11-16] MEDS: PULMICORT IH SCH (07:58)
[2016-11-16] MEDS: COZAAR PO SCH (09:02)
[2016-11-16] MEDS: LEVAQUIN 750MG/150ML 750 MG/150 ML BAG IV SCH (09:02)
--- NOTE | 2016-11-16 12:58 | Discharge Summary ---
Providers - Providers Date of Admission: 11/14/16 22:25 Date of discharge: 11/16/16 Attending physician: DUC ALEJANDRO Primary care physician: SOFY ARRIAGA MD Hospitalization Condition: Fair Disposition: DISCHARGED TO HOME OR SELFCARE - Discharge Diagnoses (1) Acute respiratory failure Status: Acute Qualifiers: Respiratory failure complication: R (2) COPD with exacerbation Status: Acute Core Measure Documentation - Palliative Care Palliative Care/ Comfort Measures: Not Applicable - Core Measures Any of the following diagnoses?: none Exam - Constitutional Vitals: Temp Pulse Resp BP Pulse Ox 97.7 F 97 H 20 135/68 96 11/16/16 07:15 11/16/16 10:00 11/16/16 08:08 11/16/16 09:02 11/16/16 07:15 General appearance: Present: no acute distress Plan Activity: no restrictions Diet: regular Additional Instructions: 1.Follow-up primary care physician or [facility] in 3-5 days. 2.Follow up with [facility] [facility], Dr. Padgett in 1 week Follow up with: PRIMARY CARE, [Primary Care Provider] - 3-5 Days Prescriptions: Prednisone [predniSONE 5 mg (6-Day Pack, 21 Tabs)] 5 mg PO .TAPER #1 tab.ds.pk
[2016-11-16 13:46] VITALS: BP 136/72
[2016-11-17] MEDS ORDERED: LEVAQUIN PO SCH (10:00)
== END 2016-11-16 16:20 | disposition home or self-care (01) | DRG 189 ==
LOC: ED 20:47 → 4A 22:25
PROVIDERS: ADMIT Internal Medicine; ATTEND Internal Medicine
PROC: 5A09457 Assistance with Respiratory Ventilation, 24-96 Consecutive Hours, Continuous Positive Airway Pressure (ICD-10-PCS; principal; 2016-11-14)
DX: J96.00 Acute respiratory failure, unspecified whether with hypoxia or hypercapnia (principal); J44.1 Chronic obstructive pulmonary disease with (acute) exacerbation; J45.909 Unspecified asthma, uncomplicated; I10 Essential (primary) hypertension
CPT/HCPCS: 36415; 71010; 80048; 84484; 85025; 93005; 93010; 94640; J1956; J2930

== ENCOUNTER 2019-09-17 20:07 | Emergency (ER) | payer OTHER ==
--- NOTE | 2019-09-17 20:49 | Event Note ---
ED Screening Note ED Screening Note: right sided neck discomfort that began this morning no fall or injury started when he was laying down This initial assessment/diagnostic orders/clinical plan/treatment(s) is/are subject to change based on patients health status, clinical progression and re- assessment by fellow clinical providers in the ED. Further treatment and workup at subsequent clinical providers discretion. Patient/guardian urged not to elope from the ED as their condition may be serious if not clinically assessed and managed.
[2019-09-17] MEDS ORDERED: HYDROcodone/ACETAMINOPHEN 7.5-325MG TAB PO ONE (21:15)
[2019-09-17] MEDS ORDERED: IBUPROFEN 800 MG TAB PO ONE (21:15)
--- NOTE | 2019-09-17 21:47 | XRay Report ---
CHEST 2 VIEWS INDICATION / CLINICAL INFORMATION: productive cough. COMPARISON: 11/14/2016. FINDINGS: SUPPORT DEVICES: None. HEART / MEDIASTINUM: No significant abnormality. LUNGS / PLEURA: No significant pulmonary or pleural abnormality. No pneumothorax. ADDITIONAL FINDINGS: No significant additional findings. IMPRESSION: 1. No acute findings. Signer Name: Aly Hernandez MD Signed: 09/17/2019 9:43 PM Workstation Name: [id number]
--- NOTE | 2019-09-17 22:01 | Emergency Department Report ---
- General Chief Complaint: Neck Pain/Injury Stated Complaint: NECK PAIN/COLD SYMPTOMS Time Seen by Provider: 09/17/19 20:48 Source: patient Mode of arrival: Ambulatory Limitations: No Limitations - History of Present Illness Initial Comments: Patient is a 54-year-old male who is presenting with 3 days of progressively worsening cough. Patient states cough is productive of brownish green sputum. He's had subjective fevers but denies nausea vomiting diarrhea or sore throat. Patient states that this morning when he woke up he was having pain with the right side of his neck and it hurts to turn his head from side to side. Patient states there is been no swelling that he can appreciate when he looks in the mirror. Patient denies chest pain. Patient did not take his blood pressure medicines this morning. Patient does have a history of hypertension as well as COPD. - Related Data Previous Rx's Medication Instructions Recorded Last Taken Type ALBUTEROL Inhaler (OR & NICU) 2 puff IH QID PRN #1 inhalation 10/04/16 Unknown Rx [ProAir HFA Inhaler] Fluticasone/Salmeterol [Advair 1 puff IH BID #1 disk.w.dev 10/04/16 Unknown Rx Diskus 250-50 mcg] Losartan [Cozaar] 100 mg PO QDAY #30 tablet 10/27/16 Unknown Rx Prednisone [predniSONE 5 mg (6-Day 5 mg PO .TAPER #1 tab.ds.pk 11/16/16 Unknown Rx Pack, 21 Tabs)] Benzonatate [Tessalon Perles] 100 mg PO Q8HR #10 capsule 09/17/19 Unknown Rx HYDROcodone/APAP 5-325 [[place] 1 each PO Q6HR PRN #14 tablet 09/17/19 Unknown Rx 5/325] levoFLOXacin [Levaquin TAB] 500 mg PO QDAY #7 tablet 09/17/19 Unknown Rx methOCARBAMOL [Robaxin TAB] 500 mg PO Q6H PRN #14 tablet 09/17/19 Unknown Rx predniSONE [Deltasone] 20 mg PO QDAY #5 tab 09/17/19 Unknown Rx Allergies Allergy/AdvReac Type Severity Reaction Status Date / Time No Known Allergies Allergy Verified 09/10/16 20:04 ED Review of Systems ROS: Stated complaint: NECK PAIN/COLD SYMPTOMS Other details as noted in HPI Comment: All other systems reviewed and negative ED Past Medical Hx - Past Medical History Hx Hypertension: Yes Hx Congestive Heart Failure: No Hx Diabetes: No Hx Asthma: Yes Hx COPD: Yes - Surgical History Additional Surgical History: RIGHT ankle - Social History Smoking Status: Never Smoker Substance Use Type: None - Medications Home Medications: Home Medications Medication Instructions Recorded Confirmed Last Taken Type ALBUTEROL Inhaler (OR & NICU) 2 puff IH QID PRN #1 inhalation 10/04/16 11/14/16 Unknown Rx [ProAir HFA Inhaler] Fluticasone/Salmeterol [Advair 1 puff IH BID #1 disk.w.dev 10/04/16 11/14/16 Unknown Rx Diskus 250-50 mcg] Losartan [Cozaar] 100 mg PO QDAY #30 tablet 10/27/16 11/14/16 Unknown Rx Prednisone [predniSONE 5 mg (6-Day 5 mg PO .TAPER #1 tab.ds.pk 11/16/16 Unknown Rx Pack, 21 Tabs)] Benzonatate [Tessalon Perles] 100 mg PO Q8HR #10 capsule 09/17/19 Unknown Rx HYDROcodone/APAP 5-325 [[place] 1 each PO Q6HR PRN #14 tablet 09/17/19 Unknown Rx 5/325] levoFLOXacin [Levaquin TAB] 500 mg PO QDAY #7 tablet 09/17/19 Unknown Rx methOCARBAMOL [Robaxin TAB] 500 mg PO Q6H PRN #14 tablet 09/17/19 Unknown Rx predniSONE [Deltasone] 20 mg PO QDAY #5 tab 09/17/19 Unknown Rx ED Physical Exam - General Limitations: No Limitations General appearance: alert, in no apparent distress - Head Head exam: Present: atraumatic, normocephalic - Eye Eye exam: Present: normal appearance, PERRL, EOMI - ENT ENT exam: Present: mucous membranes moist - Neck Neck exam: Present: normal inspection, tenderness (right SCM muscle, no obvious swelling) - Respiratory Respiratory exam: Present: rhonchi. Absent: normal lung sounds bilaterally, respiratory distress, wheezes, rales - Cardiovascular Cardiovascular Exam: Present: regular rate, normal rhythm, normal heart sounds. Absent: systolic murmur, diastolic murmur, rubs, gallop - GI/Abdominal GI/Abdominal exam: Present: soft, normal bowel sounds. Absent: distended, tenderness, guarding, rebound - Rectal Rectal exam: Present: deferred - Extremities Exam Extremities exam: Present: normal inspection - Back Exam Back exam: Present: normal inspection - Neurological Exam Neurological exam: Present: alert, oriented X3 - Psychiatric Psychiatric exam: Present: normal affect, normal mood - Skin Skin exam: Present: warm, dry, intact, normal color. Absent: rash ED Course Vital Signs 09/17/19 09/17/19 20:12 20:54 Temperature 99.6 F Pulse Rate 96 H 89 Respiratory 18 Rate Blood Pressure 192/126 Blood Pressure 165/102 [Left] O2 Sat by Pulse 95 Oximetry ED Medical Decision Making - Radiology Data Radiology results: report reviewed (chest x-ray is read as being within normal limits.), image reviewed (vital rotation of the chest x-ray that the patient has a slight left lower lobe infiltrate.) - Medical Decision Making Patient is a 54-year-old -[place] male who is presenting with a temperature of 99.6, a productive cough, and on physical exam does have rhonchi present. Patient has a history of COPD. Per my interpretation the patient has early pneumonia. Patient to be started on antibiotics and medications for symptomatic relief. A course of steroids will be added since the patient does not have a history of diabetes. Regarding the patient's right neck pain this is likely secondary to muscle spasm. Patient likely pulled his sternocleidomastoid muscle while coughing. Patient started on muscle relaxants as well. Patient be discharged home. Critical care attestation.: If time is entered above; I have spent that time in minutes in the direct care of this critically ill patient, excluding procedure time. ED Disposition Clinical Impression: Torticollis, acute, HTN (hypertension), benign Pneumonia Qualifiers: Pneumonia type: due to unspecified organism Laterality: left Lung location: lower lobe of lung Qualified Code(s): J18.9 - Pneumonia, unspecified organism COPD (chronic obstructive pulmonary disease) Qualifiers: COPD type: COPD with acute lower respiratory infection Qualified Code(s): J44.0 - Chronic obstructive pulmonary disease with (acute) lower respiratory infection Disposition: TO HOME OR SELFCARE Is pt being admited?: No Does the pt Need Aspirin: No Condition: Stable Instructions: Bacterial Pneumonia (ED), Chronic Obstructive Pulmonary Disease (ED), Hypertension (ED) Referrals: PRIMARY CARE, [Primary Care Provider] - 3-5 Days Time of Disposition: 22:03
[2019-09-17 22:34] VITALS: BP 150/94
== END 2019-09-17 22:29 | disposition home or self-care (01) ==
LOC: ED 20:07
DX: M43.6 Torticollis (principal); J18.9 Pneumonia, unspecified organism; J44.0 Chronic obstructive pulmonary disease with (acute) lower respiratory infection; I10 Essential (primary) hypertension; Z79.899 Other long term (current) drug therapy
CPT/HCPCS: 71046